=== PATIENT | female | born 1995 | race African-American/Black ===

== ENCOUNTER 2019-01-19 17:02 | Emergency (ER) | payer SELFPAY ==
[~2019-01-19] VITALS: Ht 160 cm; Wt 91.0 kg
[2019-01-19] MEDS ORDERED: LIDOCAINE HCL/PF 1% 10 MG/ML 5ML VIAL IJ ONE (23:30)
[2019-01-19] MEDS ORDERED: BACITRACIN ZINC OINT UDPKT TOP ONE (23:30)
[2019-01-20 00:50] VITALS: BP 110/69
== END 2019-01-20 00:50 | disposition home or self-care (01) ==
LOC: ER 17:02
DX: S61.304A Unspecified open wound of right ring finger with damage to nail, initial encounter (principal); Y08.89XA Assault by other specified means, initial encounter; Y93.89 Activity, other specified; Y92.89 Other specified places as the place of occurrence of the external cause; Y99.8 Other external cause status
CPT/HCPCS: 11730; 99283; J3490

== ENCOUNTER 2020-02-08 00:18 | Observation (INO) | payer MEDICAID ==
[~2020-02-08] VITALS: Ht 161.3 cm; Wt 100.7 kg
[2020-02-08] MEDS ORDERED: PREN1TAB78 PO (00:44)
== END 2020-02-08 03:37 | disposition home or self-care (01) ==
LOC: 8 EST LDRP 00:18
PROVIDERS: ADMIT Obstetrics & Gynecology; ATTEND Obstetrics & Gynecology
DX: O36.8130 Decreased fetal movements, third trimester, not applicable or unspecified (principal); Z3A.36 36 weeks gestation of pregnancy
CPT/HCPCS: 76805; 76818; 99281; G0378

== ENCOUNTER 2020-03-02 23:25 | Inpatient (IN) | payer MEDICAID ==
[~2020-03-02] VITALS: Ht 161.3 cm; Wt 103.4 kg
[~2020-03-02 23:25] MED LIST: PREN1TAB78 PO
[2020-03-03] MEDS ORDERED: DEXT 5%/LR + PITOCIN 20UNITS/L 1,000 ML IV SCH ×3 (00:53→15:58)
[2020-03-03] MEDS ORDERED: DEXT 5%/LACTATED RINGERS 1,000 ML IV SCH (00:53)
[2020-03-03] MEDS ORDERED: NALOXONE HCL 0.4 MG/ML 1ML VIAL IM PRN (01:00)
[2020-03-03] MEDS ORDERED: RHO(D) IMMUNE GLOBULIN 300 MCG/SYR IM ONE (01:00)
[2020-03-03] MEDS ORDERED: LIDOCAINE HCL 1% 20ML VIAL (Pyxis) INJ INFIL SCH (01:00)
[2020-03-03] MEDS ORDERED: PENICILLIN G POTASSIUM 5 MMU in DEXT 5% WATER 100 ML IV NR (02:00)
[2020-03-03 03:04] LABS: CLARITY URINE CLEAR (CLEAR); COLOR URINE YELLOW (YELLOW); KETONES URINE TRACE (NEGATIVE); LEUKOCYTE ESTERASE URINE NEGATIVE (NEGATIVE); NITRITE URINE NEGATIVE (NEGATIVE); OCCULT BLOOD URINE NEGATIVE (NEGATIVE); PH URINE 6.5 (4.5-8.0); PROTEIN URINE NEGATIVE (NEGATIVE); SPECIFIC GRAVITY URINE 1.007 (1.005-1.030)
[2020-03-03 03:06] LABS: BASOPHILS % 0.9 % (0.0-2.0); EOSINOPHILS % 0.6 % (0.0-5.0); HEMATOCRIT. 39.7 % (36.0-48.0); HEMOGLOBIN. 13.8 g/dL (12.0-16.0); LYMPHOCYTES % 25.4 % (20.0-50.0); MEAN PLATELET VOLUME 10.1 fl (7.4-10.4); MONOCYTES % 5.7 % (2.0-8.0); NEUTROPHILS % 67.4 % (40.0-76.0); PLATELET 256 x1000/uL (130-400); RED BLOOD CELL COUNT 4.61 mill/uL (4.2-5.4); RED CELL DISTRIBUTION WIDTH 14.4 % (11.6-14.6)
[2020-03-03 03:12] LABS: CHLORIDE 107 mEq/L (98-107)
[2020-03-03 03:19] LABS: *BENZODIAZEPINES SCREEN URINE NEGATIVE (NEGATIVE); *COCAINE SCREEN URINE NEGATIVE (NEGATIVE)
[2020-03-03 03:20] LABS: *AMPHETAMINES SCREEN URINE NEGATIVE (NEGATIVE); *BARBITURATES SCREEN URINE NEGATIVE (NEGATIVE); CANNABINOID URINE SCREEN NEGATIVE (NEGATIVE); METHADONE URINE SCREEN NEGATIVE (NEGATIVE); OPIATES URINE SCREEN NEGATIVE (NEGATIVE); PHENCYCLIDINE URINE SCREEN NEGATIVE (NEGATIVE)
[2020-03-03 04:24] LABS: HEPATITIS B SURFACE ANTIGEN NEGATIVE
[2020-03-03] MEDS: BUTORPHANOL TARTRATE 2 MG/ML VIAL IM PRN ×2 (04:40→08:44)
[2020-03-03] MEDS ORDERED: PENICILLIN G POTASSIUM 2.5 MMU in DEXTROSE 5% WATER 50 ML IV SCH (06:00)
[2020-03-03] MEDS ORDERED: ROPIVACAINE HCL 10MG/ML 20 ML VIAL EPI ONE (09:15)
[2020-03-03] MEDS ORDERED: ROPIVACAINE HCL/PF EPIDURAL 200 ML EPI SCH (10:00)
[2020-03-03] MEDS ORDERED: HEMORRHOIDAL SUPP PR PRN (16:00)
[2020-03-03] MEDS ORDERED: METHYLERGONOVINE MALEATE 0.2 MG/ML IM PRN (16:00)
[2020-03-03] MEDS ORDERED: GLYCERIN/WITCH HAZEL LEAF MEDICATED PAD TOP PRN (16:00)
[2020-03-03] MEDS ORDERED: BENZOCAINE/LANOLIN/ALOE VERA SPRAY TOP PRN (16:00)
[2020-03-03] MEDS ORDERED: IBUPROFEN 400MG TABLET PO PRN (16:00)
[2020-03-03] MEDS ORDERED: ACETAMINOPHEN WITH CODEINE 300/30MG TABLET PO PRN (16:00)
[2020-03-03] MEDS ORDERED: BISACODYL 10MG SUPP PR PRN (16:00)
[2020-03-03 17:45] VITALS: BP 117/70
[2020-03-03 18:30] VITALS: BP 111/70
[2020-03-03 20:00] VITALS: BP 115/76
[2020-03-03] MEDS: SIMETHICONE 80MG TABLET CHEW PO SCH ×2 (21:00→22:19)
[2020-03-03] MEDS: MAGNESIUM/ALUMINUM HYDROXIDE/SIMETHICONE 30ML UDC PO SCH (22:18)
[2020-03-03] MEDS: IBUPROFEN 800MG TABLET PO PRN (22:20)
[2020-03-03] MEDS: DOCUSATE SODIUM 100MG CAPSULE PO SCH (22:23)
[2020-03-04] VITALS: BP 112/80
[2020-03-04 06:20] VITALS: BP 114/82
[2020-03-04] MEDS: IBUPROFEN 800MG TABLET PO PRN (06:29)
[2020-03-04 07:00] LABS: BASOPHILS % 0.5 % (0.0-2.0); EOSINOPHILS % 0.4 % (0.0-5.0); HEMATOCRIT. 35.6 % (36.0-48.0); HEMOGLOBIN. 12.3 g/dL (12.0-16.0); LYMPHOCYTES % 22.7 % (20.0-50.0); MEAN CORPUSCULAR VOLUME 87.1 fL (81.0-99.0); MEAN PLATELET VOLUME 9.7 fl (7.4-10.4); MONOCYTES % 7.6 % (2.0-8.0); NEUTROPHILS % 68.8 % (40.0-76.0); PLATELET 225 x1000/uL (130-400); RED BLOOD CELL COUNT 4.09 mill/uL (4.2-5.4)
[2020-03-04] MEDS: MAGNESIUM/ALUMINUM HYDROXIDE/SIMETHICONE 30ML UDC PO SCH ×5 (07:30→20:53)
[2020-03-04 08:00] VITALS: BP 104/50
[2020-03-04] MEDS: SIMETHICONE 80MG TABLET CHEW PO SCH ×5 (08:00→20:55)
[2020-03-04] MEDS: FERROUS SULFATE 325MG TABLET PO SCH ×3 (08:44→17:30)
[2020-03-04] MEDS ORDERED: PRENATAL VIT/FE FUMARATE/FA TABLET PO SCH (09:00)
[2020-03-04 15:25] VITALS: BP 107/62
[2020-03-04] MEDS: DOCUSATE SODIUM 100MG CAPSULE PO SCH (20:52)
[2020-03-04 22:00] VITALS: BP 109/68
[2020-03-05 04:55] VITALS: BP 111/65
[2020-03-05] MEDS ORDERED: FERR325T23 PO (06:58)
[2020-03-05] MEDS ORDERED: IBUP-2030 PO (06:58)
[2020-03-05] MEDS ORDERED: NORE0.3520 MT (06:58)
[2020-03-05 08:00] VITALS: BP 109/59
== END 2020-03-05 09:45 | disposition home or self-care (01) | DRG 560 ==
LOC: 8 EST LDRP 23:25 → OBSVTOIN 23:25 → 8EST 03-03 17:34
PROVIDERS: ADMIT Obstetrics & Gynecology; ATTEND Obstetrics & Gynecology
PROC: 10E0XZZ Delivery of Products of Conception, External Approach (ICD-10-PCS; principal; 2020-03-03)
PROC: 0KQM0ZZ Repair Perineum Muscle, Open Approach (ICD-10-PCS; 2020-03-03)
PROC: 3E0R3BZ Introduction of Anesthetic Agent into Spinal Canal, Percutaneous Approach (ICD-10-PCS; 2020-03-03)
PROC: 00HU33Z Insertion of Infusion Device into Spinal Canal, Percutaneous Approach (ICD-10-PCS; 2020-03-03)
PROC: 10907ZC Drainage of Amniotic Fluid, Therapeutic from Products of Conception, Via Natural or Artificial Opening (ICD-10-PCS; 2020-03-03)
DX: O99.824 Streptococcus B carrier state complicating childbirth (principal); O69.81X0 Labor and delivery complicated by cord around neck, without compression, not applicable or unspecified; O70.1 Second degree perineal laceration during delivery; Z37.0 Single live birth; Z3A.39 39 weeks gestation of pregnancy
CPT/HCPCS: 36415; 80053; 80305; 81003; 85025; 86592; 86703; 86762; 86850; 86900; 87340; 99281; G0378; J0595; J2540; J2590; J2795; J3490; J7060; J7121

== ENCOUNTER 2020-08-15 19:51 | Emergency (ER) | payer MEDICAID ==
[~2020-08-15] VITALS: Ht 160 cm; Wt 86.0 kg
[~2020-08-15 19:51] MED LIST changes: +FERR325T23 PO; +IBUP-2030 PO; +NORE0.3520 MT
[2020-08-15] MEDS ORDERED: ONDANSETRON HCL 4MG/2ML INJ IV STA ×2 (21:49→23:15)
[2020-08-15] MEDS ORDERED: KETOROLAC 30MG/ML VIAL IV STA (21:49)
[2020-08-15] MEDS ORDERED: SODIUM CHLORIDE 0.9% 1,000 ML IV ONE (22:00)
[2020-08-15 23:03] LABS: BASOPHILS % 0.8 % (0.0-2.0); EOSINOPHILS % 0.8 % (0.0-5.0); HEMATOCRIT. 42.2 % (36.0-48.0); HEMOGLOBIN. 14.4 g/dL (12.0-16.0); LYMPHOCYTES % 36.9 % (20.0-50.0); MEAN CORPUSCULAR HEMOGLOBIN 29.5 pg (28.0-32.0); MEAN CORPUSCULAR VOLUME 86.6 fL (81.0-99.0); MEAN PLATELET VOLUME 9.4 fl (7.4-10.4); MONOCYTES % 6.3 % (2.0-8.0); NEUTROPHILS % 55.2 % (40.0-76.0); PLATELET 288 x1000/uL (130-400); RED BLOOD CELL COUNT 4.87 mill/uL (4.2-5.4)
[2020-08-15 23:12] LABS: CHLORIDE 107 mEq/L (98-107)
[2020-08-15] MEDS ORDERED: SUMATRIPTAN SUCCINATE 6MG/0.5ML VIAL SUBCUT ONE (23:15)
[2020-08-15] MEDS ORDERED: MORPHINE SULFATE 4 MG/ML CPJ (NOT FOR IM USE) IV STA (23:15)
[2020-08-15 23:26] LABS: PROTHROMBIN TIME 10.3 sec (9.6-11.0)
[2020-08-16] MEDS ORDERED: GADOBENATE DIMEGLUMINE 529 MG/ML 10ML IV ONE (01:11)
[2020-08-16] MEDS ORDERED: ONDANSETRON HCL 4MG/2ML INJ IV ONE (01:30)
[2020-08-16 02:28] VITALS: BP 140/85
== END 2020-08-16 02:50 | disposition home or self-care (01) ==
LOC: ER 19:51
DX: R51.9 Headache, unspecified (principal); Z91.048 Other nonmedicinal substance allergy status; Z79.899 Other long term (current) drug therapy
CPT/HCPCS: 36415; 70450; 70553; 80053; 85025; 85610; 93005; 96361; 96374; 96375; 96376; 99285; A9577; J1885; J2270; J2405; J3030; J7030

== ENCOUNTER 2020-11-23 13:41 | Emergency (ER) | payer MEDICAID ==
[~2020-11-23] VITALS: Ht 160 cm; Wt 100.0 kg
[~2020-11-23 13:41] MED LIST changes: -GADOTERATE MEGLUMINE 5 MMOL/10 ML VIAL IV ONE
[2020-11-23] MEDS ORDERED: PROCHLORPERAZINE 10MG/2ML VIAL IM ONE (14:45)
[2020-11-23] MEDS ORDERED: ONDANSETRON 4MG ODT PO ONE (14:45)
[2020-11-23] MEDS ORDERED: KETOROLAC 30MG/ML VIAL IM ONE (14:45)
[2020-11-23] MEDS ORDERED: DIPHENHYDRAMINE 50MG/ML VIAL IM ONE (14:45)
[2020-11-23] MEDS ORDERED: HYDROCODONE/ACETAMINOPHEN 5/325MG TABLET PO ONE (15:15)
[2020-11-23] MEDS ORDERED: SODIUM CHLORIDE 0.9% 1,000 ML IV ONE (16:15)
[2020-11-23 16:41] LABS: BASOPHILS % 1.1 % (0.0-2.0); EOSINOPHILS % 0.3 % (0.0-5.0); HEMATOCRIT. 41.4 % (36.0-48.0); HEMOGLOBIN. 13.7 g/dL (12.0-16.0); LYMPHOCYTES % 30.3 % (20.0-50.0); MEAN CORPUSCULAR HEMOGLOBIN 28.9 pg (28.0-32.0); MEAN CORPUSCULAR VOLUME 86.9 fL (81.0-99.0); MEAN PLATELET VOLUME 8.9 fl (7.4-10.4); MONOCYTES % 4.2 % (2.0-8.0); NEUTROPHILS % 64.1 % (40.0-76.0); PLATELET 271 x1000/uL (130-400); RED BLOOD CELL COUNT 4.76 mill/uL (4.2-5.4); RED CELL DISTRIBUTION WIDTH 13.8 % (11.6-14.6)
[2020-11-23 16:47] LABS: CHLORIDE 106 mEq/L (98-107)
[2020-11-23 16:50] LABS: ETHANOL BLOOD < 10 mg/dL
[2020-11-23 16:54] LABS: PARTIAL THROMBOPLASTIN TIME 28.7 sec (23.4-31.0); PROTHROMBIN TIME 10.7 sec (9.6-11.0)
[2020-11-23] MEDS ORDERED: DEXAMETHASONE 10 MG/ML VIAL IV ONE (17:00)
[2020-11-23 17:04] LABS: HCG SCREEN NEGATIVE
[2020-11-23 19:15] VITALS: BP 114/75
== END 2020-11-23 20:57 | disposition short-term general hospital (02) ==
LOC: ER 13:41 → EDBEDREQ 17:24 → ER 20:57 → CANBEDREQ 11-24 07:38
DX: D32.0 Benign neoplasm of cerebral meninges (principal); G89.29 Other chronic pain; G43.909 Migraine, unspecified, not intractable, without status migrainosus; R11.10 Vomiting, unspecified; Z91.09 Other allergy status, other than to drugs and biological substances
CPT/HCPCS: 36415; 70553; 80053; 80320; 84703; 85025; 85610; 85730; 93005; 96361; 96372; 96374; 99285; J0780; J1100; J1200; J1885; J7030; Q0162; G0480

== ENCOUNTER → 2020-11-23 | Emergency (ER) | payer MEDICAID ==
[~2020-11-23] MED LIST changes: +GADOTERATE MEGLUMINE 5 MMOL/10 ML VIAL IV ONE
== END | disposition short-term general hospital (02) ==
LOC: ER 15:11
DX: G43.909 Migraine, unspecified, not intractable, without status migrainosus (principal); Z53.21 Procedure and treatment not carried out due to patient leaving prior to being seen by health care provider
CPT/HCPCS: A9577

== ENCOUNTER 2021-07-03 18:54 | Emergency (ER) | payer MEDICAID ==
[~2021-07-03] VITALS: Ht 160 cm; Wt 90.0 kg
[2021-07-03] MEDS ORDERED: HYDROCODONE/ACETAMINOPHEN 5/325MG TABLET PO ONE (21:30)
[2021-07-03 22:37] LABS: BASOPHILS % 0.9 % (0.0-2.0); EOSINOPHILS % 1.7 % (0.0-5.0); HEMATOCRIT. 41.8 % (36.0-48.0); HEMOGLOBIN. 14.4 g/dL (12.0-16.0); LYMPHOCYTES % 47.7 % (20.0-50.0); MEAN CORPUSCULAR HEMOGLOBIN 29.3 pg (28.0-32.0); MEAN PLATELET VOLUME 8.6 fl (7.4-10.4); MONOCYTES % 5.4 % (2.0-8.0); NEUTROPHILS % 44.3 % (40.0-76.0); PLATELET 268 x1000/uL (130-400); RED BLOOD CELL COUNT 4.92 mill/uL (4.2-5.4); RED CELL DISTRIBUTION WIDTH 15.3 % (11.6-14.6)
[2021-07-03 22:44] LABS: CHLORIDE 109 mEq/L (98-107)
[2021-07-03] MEDS ORDERED: GADOTERATE MEGLUMINE 5 MMOL/10 ML VIAL IV ONE (23:20)
[2021-07-04] VITALS: BP 129/78
== END 2021-07-04 00:19 | disposition home or self-care (01) ==
LOC: ER 18:54
DX: R51.9 Headache, unspecified (principal); Z91.048 Other nonmedicinal substance allergy status; Z86.011 Personal history of benign neoplasm of the brain
CPT/HCPCS: 36415; 70553; 80053; 85025; 99284; A9577